=== PATIENT | male | born 1935 | race Caucasian/White ===

== ENCOUNTER 2024-02-28 13:22 | Emergency (ER) | payer OTHER ==
[2024-02-28 14:06] VITALS: BP 147/93; PULSE 99; RESP 20; TEMP 97.5; BMI 31.8
[2024-02-28] MEDS ORDERED: DIPHTH,PERTUSS(ACELL),TET 0.5 ML DISP.SYRIN IM ONE (15:35)
[2024-02-28] MEDS: DIPHTH,PERTUSS(ACELL),TET 0.5 ML DISP.SYRIN IM ONE (15:43)
== END 2024-02-28 16:13 | disposition home or self-care (01) ==
LOC: FER 13:22
PROC: 3E0234Z Introduction of Serum, Toxoid and Vaccine into Muscle, Percutaneous Approach (ICD-10-PCS; principal; 2024-02-28)
DX: S61.402A Unspecified open wound of left hand, initial encounter (principal); L98.9 Disorder of the skin and subcutaneous tissue, unspecified; R07.89 Other chest pain; W18.30XA Fall on same level, unspecified, initial encounter; Z23 Encounter for immunization
CPT/HCPCS: 70450-TC; 71101-TC-RT-FY; 73110-TC-LT-FY; 73130-TC-LT-FY; 90471; 90715; 99284-25

== ENCOUNTER 2024-04-11 06:01 | Emergency (ER) | payer OTHER ==
[2024-04-11 06:12] VITALS: BP 157/96; PULSE 82; RESP 16; TEMP 98.1; BMI 22.5
== END 2024-04-11 06:25 | disposition home or self-care (01) ==
LOC: FER 06:01
DX: H95.42 Postprocedural hemorrhage of ear and mastoid process following other procedure (principal)
CPT/HCPCS: 99282-25